=== PATIENT | male | born 1990 | race Caucasian/White ===

== ENCOUNTER 2021-04-20 16:33 | Emergency (ER) | payer OTHER ==
[2021-04-20 17:03] VITALS: BP 127/91; PULSE 129; TEMP 98.7; BMI 31.7
[2021-04-20] MEDS ORDERED: ACETAMINOPHEN 500 MG TABLET (FP) PO ONE (19:13)
[2021-04-20] MEDS ORDERED: ACETAMINOPHEN 500 MG TABLET (FP) ONE (19:15)
== END 2021-04-20 19:20 | disposition home or self-care (01) ==
LOC: JER 16:33
DX: B34.9 Viral infection, unspecified (principal)
CPT/HCPCS: 71045-TC-FY; 87804; 99284-25; C9803; U0003; U0005